=== PATIENT | male | born 1945 | race Two or more races ===

== ENCOUNTER 2019-12-13 17:22 | Inpatient (IN) | payer OTHER ==
[~2019-12-13] VITALS: Ht 175.3 cm; Wt 74.0 kg
[~2019-12-13 17:22] MED LIST: AMIO200T4 PO; ATOR20TA50 PO; CLOP75TA28 PO; DIGO0.1238 PO; DOX100T PO; LISI-646 PO; METO-6 PO; OXYB5TAB61 PO
[2019-12-13 18:26] LABS: Basophils # (auto) 0.1 uL; Eosinophils # (auto) 0.1 uL; Eosinophils % (auto) 1.4 % (0.0-7.0); Hematocrit 34.5 % (41.0-53.0); Hemoglobin 11.6 g/dL (13.5-17.5); Lymphocytes # (auto) 0.7 uL; Lymphocytes % (auto) 12.4 % (10.0-50.0); Mean Corpuscular Hemoglobin 31.1 pg (28.0-32.0); Mean Corpuscular Hgb Conc. 33.7 g/dL (32.0-36.0); Mean Corpuscular Volume 92.3 fL (80.0-100.0); Monocytes # (auto) 0.7 uL; Monocytes % (auto) 13.2 % (0.0-12.0); Neutrophils # (auto) 3.9 uL; Nucleated Red Blood Cells % 0.1 %; Platelet Count (auto) 284 10^3/uL (140-450); Red Blood Cells 3.74 10^6/uL (4.5-5.90); White Blood Cell 5.4 10^3/uL (4.4-10.8)
[2019-12-13 18:38] LABS: Albumin 3.2 g/dL (3.4-5.0); Calcium 8.5 mg/dL (8.5-10.1); Magnesium 2.5 mg/dL (1.6-2.6); Potassium 4.6 mmol/L (3.5-5.1)
[2019-12-13 18:44] LABS: BUN/Creatinine Ratio 10.7; Bilirubin, Total 0.4 mg/dL (0.2-1.0); Total Protein 7.9 g/dL (6.4-8.2)
[2019-12-13 18:45] LABS: INR 0.99 (0.9-1.15); Partial Thromboplastin Time 26.7 sec (23.64-32.05)
[2019-12-13] MEDS ORDERED: cloNIDine HCL 0.1 MG TAB PO ONE (20:15)
[2019-12-13] MEDS ORDERED: ASPirin 81 mg TAB PO ONE (20:15)
[2019-12-13] MEDS ORDERED: MORPHINE SULF INJ 2 MG/ML SYRINGE 1ML IV PRN (21:15)
[2019-12-13] MEDS ORDERED: NITROGLYCERIN 0.4 MG SL TAB SL PRN (21:15)
[2019-12-13] MEDS: AMIODARONE HCL 200 MG TAB PO SCH (22:12)
[2019-12-13] MEDS: DOXYCYCLINE 100 MG TAB/CAP PO SCH (22:13)
[2019-12-13] MEDS: ATORVASTATIN 20 MG TAB PO SCH (22:13)
[2019-12-13 22:43] VITALS: BP 147/99
[2019-12-14 05:03] VITALS: BP 143/69
[2019-12-14 09:00] VITALS: BP 128/76
[2019-12-14] MEDS: OXYBUTYNIN CHL 5 MG TAB PO SCH (09:23)
[2019-12-14] MEDS: CLOPIDOGREL BISULFATE 75 MG TAB PO SCH (09:23)
[2019-12-14] MEDS: LISINOPRIL 20 MG TAB PO SCH (09:23)
[2019-12-14] MEDS: AMIODARONE HCL 200 MG TAB PO SCH ×2 (09:24→22:16)
[2019-12-14] MEDS: DOXYCYCLINE 100 MG TAB/CAP PO SCH (09:24)
[2019-12-14] MEDS: DIGOXIN 0.125 MG TAB PO SCH (10:00)
[2019-12-14] MEDS: METOPROLOL SUCCINATE XL 50 MG TAB PO SCH (10:00)
[2019-12-14 11:18] LABS: Urine Bacteria NONE SEEN /hpf (None Seen); Urine Blood TRACE /uL (Negative); Urine WBC 1 /hpf (0 - 3)
[2019-12-14] MEDS: SOD CHL 0.45% 1,000 ML IV SCH ×2 (11:58→23:32)
[2019-12-14 12:54] VITALS: BP 148/82
[2019-12-14] MEDS: metroNIDAZOLE 500MG/100ML 100 ML IV SCH ×2 (13:35→22:17)
[2019-12-14 16:36] VITALS: BP 136/80
[2019-12-14 21:00] VITALS: BP 138/66
[2019-12-14] MEDS ORDERED: ACETAMINOPHEN 325 MG TAB PO PRN (21:15)
[2019-12-14] MEDS: ACETAMINOPHEN 325 MG TAB PO PRN (22:17)
[2019-12-14] MEDS: ATORVASTATIN 20 MG TAB PO SCH (22:17)
[2019-12-15] MEDS: ACETAMINOPHEN 325 MG TAB PO PRN ×3 (02:51→18:38)
[2019-12-15 04:47] VITALS: BP 127/81
[2019-12-15] MEDS: metroNIDAZOLE 500MG/100ML 100 ML IV SCH ×3 (05:56→22:00)
[2019-12-15 06:41] LABS: Basophils # (auto) 0 uL; Basophils % (auto) 0.2 % (0.0-2.0); Eosinophils # (auto) 0 uL; Hematocrit 35.5 % (41.0-53.0); Hemoglobin 12.1 g/dL (13.5-17.5); Lymphocytes # (auto) 0.9 uL; Lymphocytes % (auto) 8.1 % (10.0-50.0); Mean Corpuscular Hemoglobin 31.1 pg (28.0-32.0); Mean Corpuscular Volume 91.5 fL (80.0-100.0); Monocytes % (auto) 17.2 % (0.0-12.0); Neutrophils # (auto) 8.6 uL; Neutrophils % (auto) 74.5 % (37.0-80.0); Nucleated Red Blood Cells % 0.1 %; Platelet Count (auto) 228 10^3/uL (140-450); Red Blood Cells 3.88 10^6/uL (4.5-5.90); White Blood Cell 11.6 10^3/uL (4.4-10.8)
[2019-12-15 06:55] LABS: Albumin 2.7 g/dL (3.4-5.0); Potassium 5.4 mmol/L (3.5-5.1)
[2019-12-15 06:59] LABS: BUN/Creatinine Ratio 8.5; Bilirubin, Total 0.7 mg/dL (0.2-1.0); Total Protein 6.9 g/dL (6.4-8.2)
[2019-12-15 09:00] VITALS: BP 123/78
[2019-12-15] MEDS: DIGOXIN 0.125 MG TAB PO SCH (09:43)
[2019-12-15] MEDS: CLOPIDOGREL BISULFATE 75 MG TAB PO SCH (09:45)
[2019-12-15] MEDS: OXYBUTYNIN CHL 5 MG TAB PO SCH (09:46)
[2019-12-15] MEDS: AMIODARONE HCL 200 MG TAB PO SCH ×2 (09:46→22:00)
[2019-12-15] MEDS: LISINOPRIL 20 MG TAB PO SCH (09:47)
[2019-12-15] MEDS: METOPROLOL SUCCINATE XL 50 MG TAB PO SCH (09:47)
[2019-12-15] MEDS: SOD CHL 0.45% 1,000 ML IV SCH ×2 (09:48→17:24)
[2019-12-15] MEDS ORDERED: levoFLOXacin 250MG 50 ML IV SCH (10:00)
[2019-12-15] MEDS ORDERED: SODIUM ZIRCONIUM CYCL 10 GM PAK PO ONE ×2 (12:15→20:30)
[2019-12-15 13:00] VITALS: BP 144/72
[2019-12-15 17:02] VITALS: BP 125/67
[2019-12-15 17:46] LABS: BUN/Creatinine Ratio 8.7; Calcium 8.3 mg/dL (8.5-10.1); Potassium 5.2 mmol/L (3.5-5.1)
[2019-12-15] MEDS ORDERED: SODIUM BICARBONATE 8.4% INJ 50ML SYRINGE IV ONE (20:30)
[2019-12-15] MEDS ORDERED: DEXTROSE (50%) 50ML SYRG IV ONE (20:30)
[2019-12-15] MEDS ORDERED: InsuLIN REG 1unit/0.01ml Soln (100units/ml) IV ONE (20:30)
[2019-12-15] MEDS ORDERED: CALCIUM GLUC 4.65meq/50ml D5AE 50 ML IV ONE (20:30)
[2019-12-15 22:00] VITALS: BP 160/75
[2019-12-15] MEDS: ATORVASTATIN 20 MG TAB PO SCH (22:00)
[2019-12-16] MEDS: SOD CHL 0.45% 1,000 ML IV SCH ×2 (03:15→14:04)
[2019-12-16 05:00] VITALS: BP 155/90
[2019-12-16] MEDS: metroNIDAZOLE 500MG/100ML 100 ML IV SCH (06:06)
[2019-12-16 06:41] LABS: Basophils # (auto) 0 uL; Basophils % (auto) 0.1 % (0.0-2.0); Eosinophils # (auto) 0 uL; Hematocrit 33.1 % (41.0-53.0); Hemoglobin 11.3 g/dL (13.5-17.5); Lymphocytes # (auto) 0.9 uL; Lymphocytes % (auto) 6.4 % (10.0-50.0); Mean Corpuscular Hemoglobin 31.2 pg (28.0-32.0); Mean Corpuscular Hgb Conc. 34.2 g/dL (32.0-36.0); Mean Corpuscular Volume 91.1 fL (80.0-100.0); Monocytes # (auto) 1.5 uL; Monocytes % (auto) 11.1 % (0.0-12.0); Neutrophils # (auto) 11.5 uL; Neutrophils % (auto) 82.4 % (37.0-80.0); Platelet Count (auto) 187 10^3/uL (140-450); Red Blood Cells 3.64 10^6/uL (4.5-5.90); Red Cell Distribution Width 15.1 % (11.8-14.3); White Blood Cell 13.9 10^3/uL (4.4-10.8)
[2019-12-16 07:03] LABS: Albumin 2.4 g/dL (3.4-5.0); Calcium 7.9 mg/dL (8.5-10.1); Potassium 4.5 mmol/L (3.5-5.1)
[2019-12-16 07:08] LABS: BUN/Creatinine Ratio 8.7; Bilirubin, Total 0.6 mg/dL (0.2-1.0); Total Protein 6.3 g/dL (6.4-8.2)
[2019-12-16 08:45] VITALS: BP 139/78
[2019-12-16] MEDS: AMIODARONE HCL 200 MG TAB PO SCH ×2 (10:10→21:52)
[2019-12-16] MEDS: OXYBUTYNIN CHL 5 MG TAB PO SCH (10:10)
[2019-12-16] MEDS: CLOPIDOGREL BISULFATE 75 MG TAB PO SCH (10:13)
[2019-12-16] MEDS: METOPROLOL SUCCINATE XL 50 MG TAB PO SCH (10:13)
[2019-12-16] MEDS: DIGOXIN 0.125 MG TAB PO SCH (10:13)
[2019-12-16 12:48] LABS: Hepatitis A Ab IgM Negative; Hepatitis B Core IgM Negative; Hepatitis B Surface Antigen Negative (Negative)
[2019-12-16 12:49] LABS: Hepatitis C Antibody Positive (Negative)
[2019-12-16 13:00] VITALS: BP 155/86
[2019-12-16] MEDS: PIPERACILLIN-TAZOB 2.25GM 50 ML IV SCH ×2 (15:14→20:24)
[2019-12-16] MEDS ORDERED: BUMETANIDE 2.5mg/10ml (0.25 mg/ml) INJ IV ONE (16:00)
[2019-12-16] MEDS: SODIUM CHLORIDE 0.9% 1,000 ML IV SCH (16:20)
[2019-12-16 16:36] VITALS: BP 154/74
[2019-12-16 16:59] LABS: Protein, Urine 83.6 mg/dL (0.0-11.9)
[2019-12-16] MEDS: TAMSULOSIN HYDROCHLORIDE 0.4 MG CAP PO SCH (18:16)
[2019-12-16] MEDS: ACETAMINOPHEN 325 MG TAB PO PRN (18:45)
[2019-12-16] MEDS: ATORVASTATIN 20 MG TAB PO SCH (21:52)
[2019-12-16 22:00] VITALS: BP 118/74
[2019-12-17] MEDS: SODIUM CHLORIDE 0.9% 1,000 ML IV SCH ×2 (02:19→13:12)
[2019-12-17] MEDS: PIPERACILLIN-TAZOB 2.25GM 50 ML IV SCH ×4 (02:44→20:44)
[2019-12-17 05:00] VITALS: BP 143/75
[2019-12-17 06:17] LABS: Basophils # (auto) 0 uL; Basophils % (auto) 0.1 % (0.0-2.0); Eosinophils # (auto) 0 uL; Eosinophils % (auto) 0.1 % (0.0-7.0); Hematocrit 31.7 % (41.0-53.0); Lymphocytes # (auto) 0.7 uL; Lymphocytes % (auto) 6.8 % (10.0-50.0); Mean Corpuscular Hemoglobin 31.3 pg (28.0-32.0); Mean Corpuscular Hgb Conc. 34.6 g/dL (32.0-36.0); Mean Corpuscular Volume 90.4 fL (80.0-100.0); Monocytes # (auto) 0.9 uL; Monocytes % (auto) 8.5 % (0.0-12.0); Neutrophils # (auto) 9.3 uL; Neutrophils % (auto) 84.5 % (37.0-80.0); Platelet Count (auto) 186 10^3/uL (140-450); Red Blood Cells 3.51 10^6/uL (4.5-5.90); Red Cell Distribution Width 14.8 % (11.8-14.3)
[2019-12-17 06:32] LABS: Potassium 4.8 mmol/L (3.5-5.1)
[2019-12-17 06:43] LABS: Albumin 2.3 g/dL (3.4-5.0); BUN/Creatinine Ratio 10.1; Bilirubin, Total 0.6 mg/dL (0.2-1.0); Calcium 7.7 mg/dL (8.5-10.1); Total Protein 6.2 g/dL (6.4-8.2)
[2019-12-17 08:00] VITALS: BP 155/86
[2019-12-17 09:00] VITALS: BP 146/88
[2019-12-17] MEDS: AMIODARONE HCL 200 MG TAB PO SCH ×2 (09:24→22:02)
[2019-12-17] MEDS: OXYBUTYNIN CHL 5 MG TAB PO SCH (09:24)
[2019-12-17] MEDS: DIGOXIN 0.125 MG TAB PO SCH (09:24)
[2019-12-17] MEDS: METOPROLOL SUCCINATE XL 50 MG TAB PO SCH (09:25)
[2019-12-17] MEDS: CLOPIDOGREL BISULFATE 75 MG TAB PO SCH (09:25)
[2019-12-17] MEDS ORDERED: levoFLOXacin 250MG 50 ML IV SCH (10:00)
[2019-12-17 13:00] VITALS: BP 136/75
[2019-12-17] MEDS: FUROSEMIDE 40 MG/4 ML VIAL IV SCH (13:11)
[2019-12-17 17:17] VITALS: BP 153/82
[2019-12-17] MEDS: TAMSULOSIN HYDROCHLORIDE 0.4 MG CAP PO SCH (18:21)
[2019-12-17] MEDS: ACETAMINOPHEN 325 MG TAB PO PRN (20:07)
[2019-12-17 22:00] VITALS: BP 130/81
[2019-12-17] MEDS: ATORVASTATIN 20 MG TAB PO SCH (22:02)
[2019-12-18] MEDS ORDERED: PIPERACILLIN-TAZOB 2.25GM 50 ML IV ONE (01:53)
[2019-12-18] MEDS: PIPERACILLIN-TAZOB 2.25GM 50 ML IV SCH ×4 (03:03→23:46)
[2019-12-18 05:00] VITALS: BP 148/83
[2019-12-18 06:43] LABS: Basophils # (auto) 0 uL; Basophils % (auto) 0.1 % (0.0-2.0); Eosinophils # (auto) 0 uL; Eosinophils % (auto) 0.4 % (0.0-7.0); Hematocrit 31.5 % (41.0-53.0); Hemoglobin 10.9 g/dL (13.5-17.5); Lymphocytes # (auto) 0.8 uL; Lymphocytes % (auto) 8.9 % (10.0-50.0); Mean Corpuscular Hemoglobin 31.2 pg (28.0-32.0); Mean Corpuscular Hgb Conc. 34.5 g/dL (32.0-36.0); Mean Corpuscular Volume 90.4 fL (80.0-100.0); Monocytes # (auto) 0.9 uL; Monocytes % (auto) 10.7 % (0.0-12.0); Neutrophils # (auto) 6.8 uL; Neutrophils % (auto) 79.9 % (37.0-80.0); Platelet Count (auto) 200 10^3/uL (140-450); Red Blood Cells 3.48 10^6/uL (4.5-5.90); White Blood Cell 8.5 10^3/uL (4.4-10.8)
[2019-12-18 07:04] LABS: Albumin 2.2 g/dL (3.4-5.0); Calcium 7.4 mg/dL (8.5-10.1); Potassium 4.6 mmol/L (3.5-5.1)
[2019-12-18 07:07] LABS: BUN/Creatinine Ratio 9.8; Bilirubin, Total 0.6 mg/dL (0.2-1.0); Total Protein 6.2 g/dL (6.4-8.2)
[2019-12-18 08:00] VITALS: BP 150/81
[2019-12-18] MEDS: SODIUM CHLORIDE 0.9% 1,000 ML IV SCH ×3 (08:45→18:54)
[2019-12-18] MEDS ORDERED: FUROSEMIDE 40 MG/4 ML VIAL IV ONE (08:45)
[2019-12-18] MEDS: FUROSEMIDE 40 MG/4 ML VIAL IV SCH (09:15)
[2019-12-18 09:31] VITALS: BP 150/81
[2019-12-18] MEDS: CLOPIDOGREL BISULFATE 75 MG TAB PO SCH (11:13)
[2019-12-18] MEDS: AMIODARONE HCL 200 MG TAB PO SCH ×2 (11:14→22:15)
[2019-12-18] MEDS: DIGOXIN 0.125 MG TAB PO SCH (11:15)
[2019-12-18] MEDS: OXYBUTYNIN CHL 5 MG TAB PO SCH (11:16)
[2019-12-18] MEDS: METOPROLOL SUCCINATE XL 50 MG TAB PO SCH (11:16)
[2019-12-18 12:30] VITALS: BP 167/97
[2019-12-18 16:45] VITALS: BP 143/82
[2019-12-18] MEDS: TAMSULOSIN HYDROCHLORIDE 0.4 MG CAP PO SCH (18:53)
[2019-12-18 22:00] VITALS: BP 141/82
[2019-12-18] MEDS: ATORVASTATIN 20 MG TAB PO SCH (22:15)
[2019-12-18] MEDS: ACETAMINOPHEN 325 MG TAB PO PRN (22:19)
[2019-12-19 05:00] VITALS: BP 146/92
[2019-12-19 06:08] LABS: Basophils # (auto) 0 uL; Basophils % (auto) 0.3 % (0.0-2.0); Eosinophils # (auto) 0.1 uL; Eosinophils % (auto) 1.1 % (0.0-7.0); Hematocrit 32.9 % (41.0-53.0); Hemoglobin 11.2 g/dL (13.5-17.5); Lymphocytes # (auto) 0.8 uL; Lymphocytes % (auto) 12.2 % (10.0-50.0); Mean Corpuscular Hgb Conc. 34.2 g/dL (32.0-36.0); Mean Corpuscular Volume 90.4 fL (80.0-100.0); Monocytes # (auto) 0.9 uL; Monocytes % (auto) 13.1 % (0.0-12.0); Neutrophils # (auto) 4.8 uL; Neutrophils % (auto) 73.3 % (37.0-80.0); Platelet Count (auto) 215 10^3/uL (140-450); Red Blood Cells 3.63 10^6/uL (4.5-5.90); Red Cell Distribution Width 14.9 % (11.8-14.3); White Blood Cell 6.5 10^3/uL (4.4-10.8)
[2019-12-19] MEDS: cloNIDine HCL 0.1 MG TAB PO PRN (06:12)
[2019-12-19 06:58] LABS: BUN/Creatinine Ratio 9.9; Calcium 7.7 mg/dL (8.5-10.1)
[2019-12-19] MEDS: SODIUM CHLORIDE 0.9% 1,000 ML IV SCH ×3 (07:40→23:54)
[2019-12-19 08:00] VITALS: BP 91/68
[2019-12-19] MEDS: PIPERACILLIN-TAZOB 2.25GM 50 ML IV SCH ×3 (08:33→23:46)
[2019-12-19 09:10] VITALS: BP 91/68
[2019-12-19] MEDS: amLODIPine BESYLATE 5 MG TAB PO SCH (10:00)
[2019-12-19] MEDS: DIGOXIN 0.125 MG TAB PO SCH (10:00)
[2019-12-19] MEDS: FUROSEMIDE 40 MG/4 ML VIAL IV SCH (10:00)
[2019-12-19] MEDS: METOPROLOL SUCCINATE XL 50 MG TAB PO SCH (10:00)
[2019-12-19] MEDS: OXYBUTYNIN CHL 5 MG TAB PO SCH (10:21)
[2019-12-19] MEDS: CLOPIDOGREL BISULFATE 75 MG TAB PO SCH (10:22)
[2019-12-19] MEDS: AMIODARONE HCL 200 MG TAB PO SCH ×2 (10:22→21:45)
[2019-12-19 13:00] VITALS: BP 108/70
[2019-12-19 17:00] VITALS: BP 143/87
[2019-12-19] MEDS: TAMSULOSIN HYDROCHLORIDE 0.4 MG CAP PO SCH (18:02)
[2019-12-19] MEDS: ATORVASTATIN 20 MG TAB PO SCH (21:45)
[2019-12-19 22:00] VITALS: BP 144/90
[2019-12-20 05:13] VITALS: BP_SYST 103; BP_SYST 153; BP_DIAS 67; BP_DIAS 85
[2019-12-20 06:16] LABS: BUN/Creatinine Ratio 8.8; Calcium 7.5 mg/dL (8.5-10.1); Potassium 4.8 mmol/L (3.5-5.1)
[2019-12-20] MEDS: PIPERACILLIN-TAZOB 2.25GM 50 ML IV SCH ×3 (08:27→22:20)
[2019-12-20 09:00] VITALS: BP 144/77
[2019-12-20] MEDS: FUROSEMIDE 40 MG/4 ML VIAL IV SCH (09:56)
[2019-12-20] MEDS: AMIODARONE HCL 200 MG TAB PO SCH ×2 (09:56→22:19)
[2019-12-20] MEDS: CLOPIDOGREL BISULFATE 75 MG TAB PO SCH (09:57)
[2019-12-20] MEDS: OXYBUTYNIN CHL 5 MG TAB PO SCH (09:57)
[2019-12-20] MEDS: METOPROLOL SUCCINATE XL 50 MG TAB PO SCH (09:57)
[2019-12-20] MEDS: SODIUM BICARBONATE 50ML VIAL 50 ML in SOD CHL 0.45% 1,000 ML IV SCH ×2 (11:06→22:20)
[2019-12-20] MEDS: amLODIPine BESYLATE 5 MG TAB PO SCH (11:48)
[2019-12-20] MEDS: DIGOXIN 0.125 MG TAB PO SCH (11:48)
[2019-12-20 13:00] VITALS: BP 139/86
[2019-12-20 17:00] VITALS: BP 147/86
[2019-12-20] MEDS: TAMSULOSIN HYDROCHLORIDE 0.4 MG CAP PO SCH (17:34)
[2019-12-20 22:00] VITALS: BP 147/88
[2019-12-20] MEDS: ATORVASTATIN 20 MG TAB PO SCH (22:20)
[2019-12-21 05:00] VITALS: BP 159/97
[2019-12-21 06:17] LABS: Albumin 2.3 g/dL (3.4-5.0); Calcium 7.5 mg/dL (8.5-10.1); Potassium 5.1 mmol/L (3.5-5.1)
[2019-12-21 06:20] LABS: BUN/Creatinine Ratio 8.3; Bilirubin, Total 0.5 mg/dL (0.2-1.0); Total Protein 6.7 g/dL (6.4-8.2)
[2019-12-21] MEDS: SODIUM BICARBONATE 50ML VIAL 50 ML in SOD CHL 0.45% 1,000 ML IV SCH ×2 (07:30→18:59)
[2019-12-21 08:00] VITALS: BP 173/93
[2019-12-21] MEDS: PIPERACILLIN-TAZOB 2.25GM 50 ML IV SCH ×2 (08:29→15:27)
[2019-12-21] MEDS: cloNIDine HCL 0.1 MG TAB PO PRN (08:30)
[2019-12-21 09:04] VITALS: BP 173/93
[2019-12-21] MEDS: CLOPIDOGREL BISULFATE 75 MG TAB PO SCH (10:06)
[2019-12-21] MEDS: AMIODARONE HCL 200 MG TAB PO SCH ×2 (10:06→22:32)
[2019-12-21] MEDS: DIGOXIN 0.125 MG TAB PO SCH (10:06)
[2019-12-21] MEDS: OXYBUTYNIN CHL 5 MG TAB PO SCH (10:07)
[2019-12-21] MEDS: amLODIPine BESYLATE 5 MG TAB PO SCH (10:07)
[2019-12-21] MEDS: METOPROLOL SUCCINATE XL 50 MG TAB PO SCH (10:07)
[2019-12-21] MEDS: FUROSEMIDE 40 MG/4 ML VIAL IV SCH (10:08)
[2019-12-21 12:22] VITALS: BP 134/76
[2019-12-21] MEDS: Nepro With Carbsteady ButterPecan 8oz Carton PO SCH ×2 (14:11→18:00)
[2019-12-21 16:25] VITALS: BP 114/59
[2019-12-21] MEDS: TAMSULOSIN HYDROCHLORIDE 0.4 MG CAP PO SCH (17:57)
[2019-12-21 22:00] VITALS: BP 129/80
[2019-12-21] MEDS: ATORVASTATIN 20 MG TAB PO SCH (22:29)
[2019-12-22] MEDS: PIPERACILLIN-TAZOB 2.25GM 50 ML IV SCH ×3 (00:35→16:00)
[2019-12-22 05:00] VITALS: BP 154/83
[2019-12-22] MEDS: SODIUM BICARBONATE 50ML VIAL 50 ML in SOD CHL 0.45% 1,000 ML IV SCH ×3 (06:46→20:05)
[2019-12-22] MEDS: ACETAMINOPHEN 325 MG TAB PO PRN (06:47)
[2019-12-22 06:56] LABS: Potassium 4.9 mmol/L (3.5-5.1)
[2019-12-22 07:09] LABS: Albumin 2.3 g/dL (3.4-5.0); BUN/Creatinine Ratio 7.7; Bilirubin, Total 0.5 mg/dL (0.2-1.0); Calcium 7.6 mg/dL (8.5-10.1); Total Protein 6.8 g/dL (6.4-8.2)
[2019-12-22 08:00] VITALS: BP 126/77
[2019-12-22] MEDS: Nepro With Carbsteady ButterPecan 8oz Carton PO SCH ×2 (08:41→18:00)
[2019-12-22 08:47] VITALS: BP 126/77
[2019-12-22] MEDS: amLODIPine BESYLATE 5 MG TAB PO SCH ×2 (10:00→10:30)
[2019-12-22] MEDS: AMIODARONE HCL 200 MG TAB PO SCH ×2 (10:28→22:30)
[2019-12-22] MEDS: FUROSEMIDE 40 MG/4 ML VIAL IV SCH (10:28)
[2019-12-22] MEDS: DIGOXIN 0.125 MG TAB PO SCH (10:29)
[2019-12-22] MEDS: OXYBUTYNIN CHL 5 MG TAB PO SCH (10:29)
[2019-12-22] MEDS: CLOPIDOGREL BISULFATE 75 MG TAB PO SCH (10:39)
[2019-12-22] MEDS: METOPROLOL SUCCINATE XL 50 MG TAB PO SCH (10:40)
[2019-12-22 12:47] VITALS: BP 132/77
[2019-12-22 16:47] VITALS: BP 115/76
[2019-12-22] MEDS: TAMSULOSIN HYDROCHLORIDE 0.4 MG CAP PO SCH (17:28)
[2019-12-22 22:00] VITALS: BP 107/66
[2019-12-22] MEDS: ATORVASTATIN 20 MG TAB PO SCH (22:30)
[2019-12-23 05:00] VITALS: BP 109/68
[2019-12-23 06:05] LABS: Calcium 7.4 mg/dL (8.5-10.1); Potassium 4.4 mmol/L (3.5-5.1)
[2019-12-23 06:10] LABS: Albumin 2.2 g/dL (3.4-5.0); BUN/Creatinine Ratio 7.7; Bilirubin, Total 0.5 mg/dL (0.2-1.0); Total Protein 6.5 g/dL (6.4-8.2)
[2019-12-23] MEDS: Nepro With Carbsteady ButterPecan 8oz Carton PO SCH ×2 (08:00→18:39)
[2019-12-23 08:02] VITALS: BP 138/65
[2019-12-23 08:47] VITALS: BP 138/65
[2019-12-23] MEDS: PIPERACILLIN-TAZOB 2.25GM 50 ML IV SCH ×4 (09:48→23:33)
[2019-12-23] MEDS: amLODIPine BESYLATE 5 MG TAB PO SCH (10:00)
[2019-12-23] MEDS: FUROSEMIDE 40 MG/4 ML VIAL IV SCH (10:42)
[2019-12-23] MEDS: AMIODARONE HCL 200 MG TAB PO SCH ×2 (10:42→21:19)
[2019-12-23] MEDS: DIGOXIN 0.125 MG TAB PO SCH (10:43)
[2019-12-23] MEDS: METOPROLOL SUCCINATE XL 50 MG TAB PO SCH (10:43)
[2019-12-23] MEDS: CLOPIDOGREL BISULFATE 75 MG TAB PO SCH (11:04)
[2019-12-23] MEDS: OXYBUTYNIN CHL 5 MG TAB PO SCH (11:04)
[2019-12-23] MEDS: ERGOCALCIFEROL 50,000 UNIT(1.25MG) CAP PO SCH (11:05)
[2019-12-23] MEDS: SODIUM BICARBONATE 50ML VIAL 50 ML in SOD CHL 0.45% 1,000 ML IV SCH ×2 (12:32→22:54)
[2019-12-23] MEDS: SEVELAMER 800 MG TAB PO SCH ×2 (12:32→17:48)
[2019-12-23 13:00] VITALS: BP 147/69
[2019-12-23 16:58] VITALS: BP 125/68
[2019-12-23] MEDS: TAMSULOSIN HYDROCHLORIDE 0.4 MG CAP PO SCH (17:48)
[2019-12-23] MEDS: ATORVASTATIN 20 MG TAB PO SCH (21:19)
[2019-12-23 22:00] VITALS: BP 146/75
[2019-12-24 05:00] VITALS: BP 146/77
[2019-12-24 07:11] LABS: Calcium 7.5 mg/dL (8.5-10.1); Potassium 4.2 mmol/L (3.5-5.1)
[2019-12-24 07:15] LABS: BUN/Creatinine Ratio 7.9
[2019-12-24 07:17] LABS: Bilirubin, Total 0.6 mg/dL (0.2-1.0); Total Protein 6.6 g/dL (6.4-8.2)
[2019-12-24] MEDS: SEVELAMER 800 MG TAB PO SCH ×3 (08:23→17:36)
[2019-12-24] MEDS: Nepro With Carbsteady ButterPecan 8oz Carton PO SCH ×2 (08:25→18:28)
[2019-12-24 09:00] VITALS: BP 131/79
[2019-12-24] MEDS: PIPERACILLIN-TAZOB 2.25GM 50 ML IV SCH ×2 (09:03→15:48)
[2019-12-24] MEDS: CLOPIDOGREL BISULFATE 75 MG TAB PO SCH (09:53)
[2019-12-24] MEDS: AMIODARONE HCL 200 MG TAB PO SCH ×2 (09:53→22:18)
[2019-12-24] MEDS: OXYBUTYNIN CHL 5 MG TAB PO SCH (09:53)
[2019-12-24] MEDS: FUROSEMIDE 40 MG/4 ML VIAL IV SCH (09:53)
[2019-12-24] MEDS: DIGOXIN 0.125 MG TAB PO SCH (09:54)
[2019-12-24] MEDS: METOPROLOL SUCCINATE XL 50 MG TAB PO SCH (09:54)
[2019-12-24] MEDS: dilTIAZem 120MG ER CAP PO SCH (09:55)
[2019-12-24] MEDS: SODIUM BICARBONATE 50ML VIAL 50 ML in SOD CHL 0.45% 1,000 ML IV SCH ×2 (11:30→22:30)
[2019-12-24 12:40] VITALS: BP 134/73
[2019-12-24 17:00] VITALS: BP 129/75
[2019-12-24] MEDS: TAMSULOSIN HYDROCHLORIDE 0.4 MG CAP PO SCH (17:36)
[2019-12-24 22:18] VITALS: BP 133/69
[2019-12-24] MEDS: ATORVASTATIN 20 MG TAB PO SCH (22:18)
[2019-12-25] MEDS ORDERED: PIPERACILLIN-TAZOB 2.25GM 50 ML IV ONE (00:21)
[2019-12-25] MEDS: PIPERACILLIN-TAZOB 2.25GM 50 ML IV SCH ×2 (00:25→08:21)
[2019-12-25 05:00] VITALS: BP 141/75
[2019-12-25] MEDS: ACETAMINOPHEN 325 MG TAB PO PRN ×3 (05:43→15:45)
[2019-12-25] MEDS: SODIUM BICARBONATE 50ML VIAL 50 ML in SOD CHL 0.45% 1,000 ML IV SCH ×2 (06:00→12:38)
[2019-12-25 06:50] LABS: Potassium 3.7 mmol/L (3.5-5.1)
[2019-12-25 06:59] LABS: BUN/Creatinine Ratio 7.7; Bilirubin, Total 0.6 mg/dL (0.2-1.0); Calcium 7.7 mg/dL (8.5-10.1); Total Protein 6.8 g/dL (6.4-8.2)
[2019-12-25] MEDS: SEVELAMER 800 MG TAB PO SCH ×3 (08:21→17:50)
[2019-12-25] MEDS: Nepro With Carbsteady ButterPecan 8oz Carton PO SCH (08:22)
[2019-12-25 09:00] VITALS: BP 148/87
[2019-12-25] MEDS ORDERED: POTASSIUM EFFERVESENT TAB 25 MEQ PO ONE (10:45)
[2019-12-25] MEDS: AMIODARONE HCL 200 MG TAB PO SCH ×2 (10:56→22:08)
[2019-12-25] MEDS: CLOPIDOGREL BISULFATE 75 MG TAB PO SCH (10:58)
[2019-12-25] MEDS: OXYBUTYNIN CHL 5 MG TAB PO SCH (10:58)
[2019-12-25] MEDS: METOPROLOL SUCCINATE XL 50 MG TAB PO SCH (10:58)
[2019-12-25] MEDS: DIGOXIN 0.125 MG TAB PO SCH (10:59)
[2019-12-25] MEDS: FUROSEMIDE 40 MG/4 ML VIAL IV SCH (10:59)
[2019-12-25] MEDS: dilTIAZem 120MG ER CAP PO SCH (11:00)
[2019-12-25 13:00] VITALS: BP 152/88
[2019-12-25 17:00] VITALS: BP 118/72
[2019-12-25] MEDS: TAMSULOSIN HYDROCHLORIDE 0.4 MG CAP PO SCH (17:50)
[2019-12-25 22:00] VITALS: BP 129/76
[2019-12-25] MEDS: LINEZOLID 600MG/300ML 300 ML IV SCH (22:07)
[2019-12-25] MEDS: ATORVASTATIN 20 MG TAB PO SCH (22:08)
[2019-12-26] VITALS (7 sets, daily range): BP systolic 116–172; BP diastolic 75–86
[2019-12-26] MEDS: SODIUM BICARBONATE 50ML VIAL 50 ML in SOD CHL 0.45% 1,000 ML IV SCH ×2 (03:25→13:30)
[2019-12-26] MEDS: cloNIDine HCL 0.1 MG TAB PO PRN (05:28)
[2019-12-26 07:39] LABS: Albumin 2.3 g/dL (3.4-5.0); BUN/Creatinine Ratio 7.5; Bilirubin, Total 0.6 mg/dL (0.2-1.0); Calcium 8.2 mg/dL (8.5-10.1); Potassium 4.4 mmol/L (3.5-5.1); Total Protein 7.5 g/dL (6.4-8.2)
[2019-12-26] MEDS: SEVELAMER 800 MG TAB PO SCH ×4 (08:00→18:04)
[2019-12-26] MEDS: ONDANSETRON HCL 4 MG/2 ML VIAL IV PRN ×2 (10:00→14:34)
[2019-12-26] MEDS: LINEZOLID 600MG/300ML 300 ML IV SCH ×2 (10:00→22:19)
[2019-12-26] MEDS: FUROSEMIDE 40 MG/4 ML VIAL IV SCH (10:00)
[2019-12-26] MEDS: dilTIAZem 120MG ER CAP PO SCH (13:00)
[2019-12-26] MEDS: METOPROLOL SUCCINATE XL 50 MG TAB PO SCH (13:01)
[2019-12-26] MEDS: CLOPIDOGREL BISULFATE 75 MG TAB PO SCH (13:01)
[2019-12-26] MEDS: OXYBUTYNIN CHL 5 MG TAB PO SCH (13:01)
[2019-12-26] MEDS: AMIODARONE HCL 200 MG TAB PO SCH ×2 (13:01→22:19)
[2019-12-26] MEDS: DIGOXIN 0.125 MG TAB PO SCH (13:03)
[2019-12-26] MEDS: TAMSULOSIN HYDROCHLORIDE 0.4 MG CAP PO SCH (18:03)
[2019-12-26] MEDS: ATORVASTATIN 20 MG TAB PO SCH (22:19)
[2019-12-26] MEDS: ACETAMINOPHEN 325 MG TAB PO PRN (22:20)
[2019-12-27] MEDS: SODIUM BICARBONATE 50ML VIAL 50 ML in SOD CHL 0.45% 1,000 ML IV SCH ×3 (04:19→22:01)
[2019-12-27 05:22] VITALS: BP 122/70
[2019-12-27 06:01] LABS: Basophils # (auto) 0 uL; Basophils % (auto) 0.3 % (0.0-2.0); Eosinophils # (auto) 0.1 uL; Eosinophils % (auto) 1.2 % (0.0-7.0); Hematocrit 27.4 % (41.0-53.0); Hemoglobin 9.4 g/dL (13.5-17.5); Lymphocytes # (auto) 0.8 uL; Lymphocytes % (auto) 11.1 % (10.0-50.0); Mean Corpuscular Hemoglobin 30.2 pg (28.0-32.0); Mean Corpuscular Hgb Conc. 34.3 g/dL (32.0-36.0); Mean Corpuscular Volume 88.1 fL (80.0-100.0); Monocytes # (auto) 0.8 uL; Monocytes % (auto) 10.1 % (0.0-12.0); Neutrophils # (auto) 5.8 uL; Neutrophils % (auto) 77.3 % (37.0-80.0); Platelet Count (auto) 361 10^3/uL (140-450); Red Blood Cells 3.12 10^6/uL (4.5-5.90); Red Cell Distribution Width 14.4 % (11.8-14.3); White Blood Cell 7.5 10^3/uL (4.4-10.8)
[2019-12-27 06:23] LABS: BUN/Creatinine Ratio 7.1; Potassium 3.7 mmol/L (3.5-5.1)
[2019-12-27] MEDS: SEVELAMER 800 MG TAB PO SCH ×3 (07:54→17:44)
[2019-12-27 08:00] VITALS: BP 133/78
[2019-12-27 09:00] VITALS: BP 133/78
[2019-12-27] MEDS: FUROSEMIDE 40 MG/4 ML VIAL IV SCH (10:13)
[2019-12-27] MEDS: LINEZOLID 600MG/300ML 300 ML IV SCH ×2 (10:13→22:02)
[2019-12-27] MEDS: dilTIAZem 120MG ER CAP PO SCH (10:14)
[2019-12-27] MEDS: AMIODARONE HCL 200 MG TAB PO SCH ×2 (10:14→22:02)
[2019-12-27] MEDS: DIGOXIN 0.125 MG TAB PO SCH (10:15)
[2019-12-27] MEDS: CLOPIDOGREL BISULFATE 75 MG TAB PO SCH (10:15)
[2019-12-27] MEDS: OXYBUTYNIN CHL 5 MG TAB PO SCH (10:15)
[2019-12-27] MEDS: METOPROLOL SUCCINATE XL 50 MG TAB PO SCH (10:16)
[2019-12-27 13:00] VITALS: BP 118/71
[2019-12-27 17:00] VITALS: BP 132/76
[2019-12-27] MEDS: TAMSULOSIN HYDROCHLORIDE 0.4 MG CAP PO SCH (17:44)
[2019-12-27 22:00] VITALS: BP 110/72
[2019-12-27] MEDS: ATORVASTATIN 20 MG TAB PO SCH (22:02)
[2019-12-28 05:00] VITALS: BP 135/86
[2019-12-28] MEDS: SODIUM BICARBONATE 50ML VIAL 50 ML in SOD CHL 0.45% 1,000 ML IV SCH ×2 (07:30→18:00)
[2019-12-28] MEDS: Nepro With Carbsteady ButterPecan 8oz Carton PO SCH ×2 (08:25→18:00)
[2019-12-28] MEDS: SEVELAMER 800 MG TAB PO SCH ×3 (08:30→18:00)
[2019-12-28 09:38] VITALS: BP 137/72
[2019-12-28] MEDS: dilTIAZem 120MG ER CAP PO SCH (10:00)
[2019-12-28] MEDS: AMIODARONE HCL 200 MG TAB PO SCH ×2 (10:00→23:12)
[2019-12-28] MEDS: LINEZOLID 600MG/300ML 300 ML IV SCH ×2 (10:51→23:11)
[2019-12-28] MEDS: FUROSEMIDE 40 MG/4 ML VIAL IV SCH (10:52)
[2019-12-28] MEDS: OXYBUTYNIN CHL 5 MG TAB PO SCH (10:53)
[2019-12-28] MEDS: DIGOXIN 0.125 MG TAB PO SCH (10:53)
[2019-12-28] MEDS: CLOPIDOGREL BISULFATE 75 MG TAB PO SCH (10:54)
[2019-12-28] MEDS: METOPROLOL SUCCINATE XL 50 MG TAB PO SCH (10:54)
[2019-12-28 13:00] VITALS: BP 146/78
[2019-12-28 17:00] VITALS: BP 140/75
[2019-12-28] MEDS: TAMSULOSIN HYDROCHLORIDE 0.4 MG CAP PO SCH (18:27)
[2019-12-28 21:00] VITALS: BP 154/84
[2019-12-28] MEDS ORDERED: CALCIUM CARB 500 MG CHEW TAB PO PRN (21:00)
[2019-12-28] MEDS: ATORVASTATIN 20 MG TAB PO SCH (23:11)
[2019-12-28] MEDS: ONDANSETRON HCL 4 MG/2 ML VIAL IV PRN (23:20)
[2019-12-29] MEDS: SODIUM BICARBONATE 50ML VIAL 50 ML in SOD CHL 0.45% 1,000 ML IV SCH ×2 (04:21→18:47)
[2019-12-29 04:30] VITALS: BP 117/80
[2019-12-29] MEDS: CALCIUM CARB 500 MG CHEW TAB PO SCH ×4 (06:31→22:16)
[2019-12-29 06:54] LABS: Potassium 4.2 mmol/L (3.5-5.1)
[2019-12-29 07:01] LABS: BUN/Creatinine Ratio 7.4; Calcium 8.2 mg/dL (8.5-10.1)
[2019-12-29 08:27] VITALS: BP 135/79
[2019-12-29] MEDS: Nepro With Carbsteady ButterPecan 8oz Carton PO SCH ×2 (08:30→18:00)
[2019-12-29] MEDS: SEVELAMER 800 MG TAB PO SCH ×3 (08:30→18:00)
[2019-12-29] MEDS: OXYBUTYNIN CHL 5 MG TAB PO SCH (10:01)
[2019-12-29] MEDS: FUROSEMIDE 40 MG/4 ML VIAL IV SCH (10:01)
[2019-12-29] MEDS: CLOPIDOGREL BISULFATE 75 MG TAB PO SCH (10:01)
[2019-12-29] MEDS: AMIODARONE HCL 200 MG TAB PO SCH ×2 (10:01→22:15)
[2019-12-29] MEDS: LINEZOLID 600MG/300ML 300 ML IV SCH ×2 (10:01→22:15)
[2019-12-29] MEDS: DIGOXIN 0.125 MG TAB PO SCH (10:02)
[2019-12-29] MEDS: dilTIAZem 120MG ER CAP PO SCH (10:03)
[2019-12-29] MEDS: METOPROLOL SUCCINATE XL 50 MG TAB PO SCH (10:03)
[2019-12-29 13:33] VITALS: BP 134/78
[2019-12-29] MEDS: TAMSULOSIN HYDROCHLORIDE 0.4 MG CAP PO SCH (18:00)
[2019-12-29] MEDS: ACETAMINOPHEN 325 MG TAB PO PRN (18:41)
[2019-12-29 21:00] VITALS: BP 142/80
[2019-12-29] MEDS: ATORVASTATIN 20 MG TAB PO SCH (22:15)
[2019-12-29] MEDS: PANTOPRAZOLE 40 MG TAB PO SCH (22:16)
[2019-12-30] MEDS: SODIUM BICARBONATE 50ML VIAL 50 ML in SOD CHL 0.45% 1,000 ML IV SCH ×3 (01:59→22:20)
[2019-12-30 05:00] VITALS: BP 148/74
[2019-12-30] MEDS: CALCIUM CARB 500 MG CHEW TAB PO SCH ×5 (06:12→22:19)
[2019-12-30] MEDS: SUCRALFATE 1 GM/10 ML ORAL SUSP PO SCH ×3 (06:12→16:51)
[2019-12-30 07:36] LABS: BUN/Creatinine Ratio 7.9; Calcium 8.3 mg/dL (8.5-10.1); Potassium 3.3 mmol/L (3.5-5.1)
[2019-12-30] MEDS: Nepro With Carbsteady ButterPecan 8oz Carton PO SCH ×2 (08:27→16:51)
[2019-12-30] MEDS: SEVELAMER 800 MG TAB PO SCH ×3 (08:28→16:51)
[2019-12-30 09:00] VITALS: BP 136/83
[2019-12-30] MEDS: AMIODARONE HCL 200 MG TAB PO SCH ×2 (10:42→22:20)
[2019-12-30] MEDS: OXYBUTYNIN CHL 5 MG TAB PO SCH (10:43)
[2019-12-30] MEDS: dilTIAZem 120MG ER CAP PO SCH (10:43)
[2019-12-30] MEDS: DIGOXIN 0.125 MG TAB PO SCH (10:44)
[2019-12-30] MEDS: PANTOPRAZOLE 40 MG TAB PO SCH ×2 (10:44→22:18)
[2019-12-30] MEDS: CLOPIDOGREL BISULFATE 75 MG TAB PO SCH (10:44)
[2019-12-30] MEDS: METOPROLOL SUCCINATE XL 50 MG TAB PO SCH (10:45)
[2019-12-30] MEDS: ERGOCALCIFEROL 50,000 UNIT(1.25MG) CAP PO SCH (10:45)
[2019-12-30] MEDS: LINEZOLID 600MG/300ML 300 ML IV SCH ×2 (10:52→22:18)
[2019-12-30 13:00] VITALS: BP 144/73
[2019-12-30 16:51] VITALS: BP 138/80
[2019-12-30] MEDS: TAMSULOSIN HYDROCHLORIDE 0.4 MG CAP PO SCH (16:51)
[2019-12-30 22:00] VITALS: BP 135/81
[2019-12-30] MEDS: ATORVASTATIN 20 MG TAB PO SCH (22:18)
[2019-12-31 05:00] VITALS: BP 146/83
[2019-12-31] MEDS: SUCRALFATE 1 GM/10 ML ORAL SUSP PO SCH ×3 (06:26→17:47)
[2019-12-31] MEDS: CALCIUM CARB 500 MG CHEW TAB PO SCH ×5 (06:26→21:40)
[2019-12-31 06:58] LABS: BUN/Creatinine Ratio 8.2; Calcium 8.1 mg/dL (8.5-10.1); Potassium 3.5 mmol/L (3.5-5.1)
[2019-12-31] MEDS: Nepro With Carbsteady ButterPecan 8oz Carton PO SCH ×2 (08:00→17:47)
[2019-12-31] MEDS: SEVELAMER 800 MG TAB PO SCH ×3 (08:00→17:47)
[2019-12-31] MEDS: ONDANSETRON HCL 4 MG/2 ML VIAL IV PRN (08:47)
[2019-12-31 09:00] VITALS: BP 145/83
[2019-12-31] MEDS: SODIUM BICARBONATE 50ML VIAL 50 ML in SOD CHL 0.45% 1,000 ML IV SCH ×2 (09:00→15:45)
[2019-12-31] MEDS: CLOPIDOGREL BISULFATE 75 MG TAB PO SCH (09:38)
[2019-12-31] MEDS: LINEZOLID 600MG/300ML 300 ML IV SCH ×2 (09:40→21:35)
[2019-12-31] MEDS: AMIODARONE HCL 200 MG TAB PO SCH ×2 (09:41→21:36)
[2019-12-31] MEDS: dilTIAZem 120MG ER CAP PO SCH (09:41)
[2019-12-31] MEDS: DIGOXIN 0.125 MG TAB PO SCH (09:42)
[2019-12-31] MEDS: OXYBUTYNIN CHL 5 MG TAB PO SCH (09:52)
[2019-12-31] MEDS: PANTOPRAZOLE 40 MG TAB PO SCH ×2 (09:52→21:38)
[2019-12-31] MEDS: METOPROLOL SUCCINATE XL 50 MG TAB PO SCH (09:52)
[2019-12-31 13:00] VITALS: BP 137/77
[2019-12-31 17:00] VITALS: BP 127/75
[2019-12-31] MEDS: TAMSULOSIN HYDROCHLORIDE 0.4 MG CAP PO SCH (17:47)
[2019-12-31] MEDS: ACETAMINOPHEN 325 MG TAB PO PRN (17:52)
[2019-12-31] MEDS: ATORVASTATIN 20 MG TAB PO SCH (21:38)
[2019-12-31 22:00] VITALS: BP 141/80
[2020-01-01 05:00] VITALS: BP 147/81
[2020-01-01] MEDS: CALCIUM CARB 500 MG CHEW TAB PO SCH ×4 (05:07→22:00)
[2020-01-01] MEDS: SODIUM BICARBONATE 50ML VIAL 50 ML in SOD CHL 0.45% 1,000 ML IV SCH ×2 (05:45→14:37)
[2020-01-01] MEDS: SUCRALFATE 1 GM/10 ML ORAL SUSP PO SCH ×3 (05:45→17:00)
[2020-01-01 05:50] LABS: Basophils # (auto) 0 uL; Basophils % (auto) 0.5 % (0.0-2.0); Eosinophils # (auto) 0.1 uL; Hematocrit 27.5 % (41.0-53.0); Hemoglobin 9.6 g/dL (13.5-17.5); Lymphocytes # (auto) 0.9 uL; Lymphocytes % (auto) 12.1 % (10.0-50.0); Mean Corpuscular Hemoglobin 30.7 pg (28.0-32.0); Mean Corpuscular Hgb Conc. 34.9 g/dL (32.0-36.0); Mean Corpuscular Volume 87.9 fL (80.0-100.0); Monocytes # (auto) 0.9 uL; Monocytes % (auto) 12.7 % (0.0-12.0); Neutrophils # (auto) 5.3 uL; Neutrophils % (auto) 73.7 % (37.0-80.0); Platelet Count (auto) 326 10^3/uL (140-450); Red Blood Cells 3.13 10^6/uL (4.5-5.90); Red Cell Distribution Width 14.8 % (11.8-14.3); White Blood Cell 7.2 10^3/uL (4.4-10.8)
[2020-01-01 06:06] LABS: BUN/Creatinine Ratio 8.6; Calcium 8.1 mg/dL (8.5-10.1); Potassium 3.4 mmol/L (3.5-5.1)
[2020-01-01] MEDS: Nepro With Carbsteady ButterPecan 8oz Carton PO SCH ×2 (08:00→17:34)
[2020-01-01] MEDS: SEVELAMER 800 MG TAB PO SCH ×3 (08:00→17:58)
[2020-01-01 09:00] VITALS: BP 145/85
[2020-01-01] MEDS: ONDANSETRON HCL 4 MG/2 ML VIAL IV PRN (09:56)
[2020-01-01] MEDS: LINEZOLID 600MG/300ML 300 ML IV SCH (09:56)
[2020-01-01] MEDS: PANTOPRAZOLE 40 MG TAB PO SCH ×2 (10:00→22:27)
[2020-01-01] MEDS: dilTIAZem 120MG ER CAP PO SCH (10:00)
[2020-01-01] MEDS: METOPROLOL SUCCINATE XL 50 MG TAB PO SCH (10:00)
[2020-01-01] MEDS: DIGOXIN 0.125 MG TAB PO SCH (10:00)
[2020-01-01] MEDS: CLOPIDOGREL BISULFATE 75 MG TAB PO SCH (10:00)
[2020-01-01] MEDS: OXYBUTYNIN CHL 5 MG TAB PO SCH (10:00)
[2020-01-01] MEDS: AMIODARONE HCL 200 MG TAB PO SCH ×2 (10:00→22:26)
[2020-01-01] MEDS ORDERED: GASTROGRAFIN 120 ML SOL ONE ×2 (12:14→12:49)
[2020-01-01] MEDS ORDERED: EZ-GAS II GRANULES (RADIOLOGY USE) PO ONE (12:14)
[2020-01-01 13:00] VITALS: BP 157/84
[2020-01-01 14:05] VITALS: BP 157/84
[2020-01-01 17:00] VITALS: BP 153/79
[2020-01-01] MEDS: ACETAMINOPHEN 325 MG TAB PO PRN (17:58)
[2020-01-01] MEDS: TAMSULOSIN HYDROCHLORIDE 0.4 MG CAP PO SCH (17:58)
[2020-01-01 22:00] VITALS: BP 141/83
[2020-01-01] MEDS: ATORVASTATIN 20 MG TAB PO SCH (22:26)
[2020-01-01] MEDS: LINEZOLID 600MG TABLET PO SCH (22:27)
[2020-01-02 05:00] VITALS: BP 152/92
[2020-01-02] MEDS: SODIUM BICARBONATE 50ML VIAL 50 ML in SOD CHL 0.45% 1,000 ML IV SCH ×2 (05:27→18:53)
[2020-01-02] MEDS: CALCIUM CARB 500 MG CHEW TAB PO SCH ×4 (06:00→22:24)
[2020-01-02] MEDS: SUCRALFATE 1 GM/10 ML ORAL SUSP PO SCH ×3 (06:34→18:53)
[2020-01-02 09:00] VITALS: BP 144/90
[2020-01-02] MEDS: AMIODARONE HCL 200 MG TAB PO SCH ×2 (09:44→22:23)
[2020-01-02] MEDS: OXYBUTYNIN CHL 5 MG TAB PO SCH (09:44)
[2020-01-02] MEDS: CLOPIDOGREL BISULFATE 75 MG TAB PO SCH (09:44)
[2020-01-02] MEDS: dilTIAZem 120MG ER CAP PO SCH (09:44)
[2020-01-02] MEDS: DIGOXIN 0.125 MG TAB PO SCH (09:45)
[2020-01-02] MEDS: LINEZOLID 600MG TABLET PO SCH ×2 (09:45→22:24)
[2020-01-02] MEDS: METOPROLOL SUCCINATE XL 50 MG TAB PO SCH (09:45)
[2020-01-02] MEDS: PANTOPRAZOLE 40 MG TAB PO SCH ×2 (09:45→22:23)
[2020-01-02] MEDS: SEVELAMER 800 MG TAB PO SCH ×3 (09:46→18:54)
[2020-01-02] MEDS: Nepro With Carbsteady ButterPecan 8oz Carton PO SCH ×2 (09:46→18:54)
[2020-01-02 13:00] VITALS: BP 144/83
[2020-01-02 17:00] VITALS: BP 142/78
[2020-01-02 17:07] LABS: BUN/Creatinine Ratio 8.9; Calcium 7.8 mg/dL (8.5-10.1); Potassium 3.4 mmol/L (3.5-5.1)
[2020-01-02] MEDS: TAMSULOSIN HYDROCHLORIDE 0.4 MG CAP PO SCH (18:53)
[2020-01-02 21:57] VITALS: BP 130/91
[2020-01-02] MEDS: ATORVASTATIN 20 MG TAB PO SCH (22:23)
[2020-01-02] MEDS: ACETAMINOPHEN 325 MG TAB PO PRN (22:26)
[2020-01-03] MEDS: SODIUM BICARBONATE 50ML VIAL 50 ML in SOD CHL 0.45% 1,000 ML IV SCH ×2 (03:54→09:47)
[2020-01-03] MEDS: CALCIUM CARB 500 MG CHEW TAB PO SCH ×4 (06:11→22:47)
[2020-01-03] MEDS: SUCRALFATE 1 GM/10 ML ORAL SUSP PO SCH ×3 (06:11→18:25)
[2020-01-03 06:12] VITALS: BP 127/70
[2020-01-03 07:05] LABS: BUN/Creatinine Ratio 8.1; Calcium 8.2 mg/dL (8.5-10.1); Potassium 3.1 mmol/L (3.5-5.1)
[2020-01-03 07:41] VITALS: BP 152/82
[2020-01-03] MEDS: dilTIAZem 120MG ER CAP PO SCH (09:31)
[2020-01-03] MEDS: OXYBUTYNIN CHL 5 MG TAB PO SCH (09:31)
[2020-01-03] MEDS: AMIODARONE HCL 200 MG TAB PO SCH ×2 (09:31→22:46)
[2020-01-03] MEDS: CLOPIDOGREL BISULFATE 75 MG TAB PO SCH (09:32)
[2020-01-03] MEDS: PANTOPRAZOLE 40 MG TAB PO SCH ×2 (09:32→22:47)
[2020-01-03] MEDS: METOPROLOL SUCCINATE XL 50 MG TAB PO SCH (09:32)
[2020-01-03] MEDS: DIGOXIN 0.125 MG TAB PO SCH (09:32)
[2020-01-03] MEDS: SEVELAMER 800 MG TAB PO SCH ×3 (09:46→18:26)
[2020-01-03] MEDS: Nepro With Carbsteady ButterPecan 8oz Carton PO SCH ×2 (09:46→18:26)
[2020-01-03] MEDS: LINEZOLID 600MG TABLET PO SCH ×2 (09:46→22:50)
[2020-01-03] MEDS ORDERED: POTASSIUM CHL 20 Meq TABLET PO ONE (11:30)
[2020-01-03 11:48] VITALS: BP 129/76
[2020-01-03 16:34] VITALS: BP 133/81
[2020-01-03] MEDS: TAMSULOSIN HYDROCHLORIDE 0.4 MG CAP PO SCH (18:25)
[2020-01-03 21:51] VITALS: BP 132/78
[2020-01-03] MEDS: ATORVASTATIN 20 MG TAB PO SCH (22:47)
[2020-01-04 05:51] VITALS: BP 135/82
[2020-01-04] MEDS: CALCIUM CARB 500 MG CHEW TAB PO SCH ×4 (06:20→20:52)
[2020-01-04] MEDS: SUCRALFATE 1 GM/10 ML ORAL SUSP PO SCH ×3 (06:21→17:50)
[2020-01-04 06:39] LABS: Basophils # (auto) 0 uL; Basophils % (auto) 0.8 % (0.0-2.0); Eosinophils # (auto) 0.1 uL; Eosinophils % (auto) 1.9 % (0.0-7.0); Hematocrit 27.1 % (41.0-53.0); Hemoglobin 9.3 g/dL (13.5-17.5); Lymphocytes # (auto) 0.8 uL; Lymphocytes % (auto) 13.3 % (10.0-50.0); Mean Corpuscular Hemoglobin 30.7 pg (28.0-32.0); Mean Corpuscular Hgb Conc. 34.4 g/dL (32.0-36.0); Mean Corpuscular Volume 89.3 fL (80.0-100.0); Monocytes # (auto) 0.8 uL; Monocytes % (auto) 14.2 % (0.0-12.0); Neutrophils % (auto) 69.8 % (37.0-80.0); Platelet Count (auto) 243 10^3/uL (140-450); Red Blood Cells 3.03 10^6/uL (4.5-5.90); Red Cell Distribution Width 15.2 % (11.8-14.3); White Blood Cell 5.8 10^3/uL (4.4-10.8)
[2020-01-04 06:59] LABS: BUN/Creatinine Ratio 9.9; Calcium 8.5 mg/dL (8.5-10.1); Potassium 3.9 mmol/L (3.5-5.1)
[2020-01-04] MEDS: Nepro With Carbsteady ButterPecan 8oz Carton PO SCH ×2 (08:00→17:51)
[2020-01-04] MEDS: SEVELAMER 800 MG TAB PO SCH ×3 (08:13→17:50)
[2020-01-04 08:41] VITALS: BP 145/85
[2020-01-04] MEDS: dilTIAZem 120MG ER CAP PO SCH (10:47)
[2020-01-04] MEDS: OXYBUTYNIN CHL 5 MG TAB PO SCH (10:48)
[2020-01-04] MEDS: LINEZOLID 600MG TABLET PO SCH ×2 (10:48→20:57)
[2020-01-04] MEDS: CLOPIDOGREL BISULFATE 75 MG TAB PO SCH (10:48)
[2020-01-04] MEDS: PANTOPRAZOLE 40 MG TAB PO SCH ×2 (10:48→20:56)
[2020-01-04] MEDS: METOPROLOL SUCCINATE XL 50 MG TAB PO SCH (10:51)
[2020-01-04] MEDS: DIGOXIN 0.125 MG TAB PO SCH (10:51)
[2020-01-04] MEDS: AMIODARONE HCL 200 MG TAB PO SCH ×2 (10:51→20:51)
[2020-01-04 12:57] VITALS: BP 136/84
[2020-01-04 17:07] VITALS: BP 136/79
[2020-01-04] MEDS: TAMSULOSIN HYDROCHLORIDE 0.4 MG CAP PO SCH (17:50)
[2020-01-04 20:00] VITALS: BP 145/85
[2020-01-04] MEDS: ACETAMINOPHEN 325 MG TAB PO PRN (20:49)
[2020-01-04] MEDS: ATORVASTATIN 20 MG TAB PO SCH (20:50)
[2020-01-04 22:07] VITALS: BP 147/82
[2020-01-05 05:00] VITALS: BP 150/86
[2020-01-05] MEDS: SUCRALFATE 1 GM/10 ML ORAL SUSP PO SCH ×3 (05:50→17:44)
[2020-01-05] MEDS: CALCIUM CARB 500 MG CHEW TAB PO SCH ×4 (05:58→21:58)
[2020-01-05] MEDS: Nepro With Carbsteady ButterPecan 8oz Carton PO SCH ×2 (08:00→18:00)
[2020-01-05 08:12] LABS: BUN/Creatinine Ratio 10.4; Calcium 8.6 mg/dL (8.5-10.1); Potassium 3.9 mmol/L (3.5-5.1)
[2020-01-05] MEDS: OXYBUTYNIN CHL 5 MG TAB PO SCH (08:53)
[2020-01-05] MEDS: LINEZOLID 600MG TABLET PO SCH ×2 (08:53→21:58)
[2020-01-05] MEDS: SEVELAMER 800 MG TAB PO SCH ×3 (08:53→17:45)
[2020-01-05] MEDS: CLOPIDOGREL BISULFATE 75 MG TAB PO SCH (08:53)
[2020-01-05] MEDS: AMIODARONE HCL 200 MG TAB PO SCH ×2 (08:54→21:59)
[2020-01-05] MEDS: METOPROLOL SUCCINATE XL 50 MG TAB PO SCH (08:54)
[2020-01-05] MEDS: PANTOPRAZOLE 40 MG TAB PO SCH ×2 (08:54→21:58)
[2020-01-05] MEDS: dilTIAZem 120MG ER CAP PO SCH (08:55)
[2020-01-05] MEDS: DIGOXIN 0.125 MG TAB PO SCH (08:57)
[2020-01-05 09:00] VITALS: BP 154/85
[2020-01-05] MEDS: ACETAMINOPHEN 325 MG TAB PO PRN (12:20)
[2020-01-05 13:00] VITALS: BP 157/87
[2020-01-05 17:00] VITALS: BP 123/76
[2020-01-05] MEDS: TAMSULOSIN HYDROCHLORIDE 0.4 MG CAP PO SCH (17:45)
[2020-01-05] MEDS: ATORVASTATIN 20 MG TAB PO SCH (21:58)
[2020-01-05 22:00] VITALS: BP 140/80
[2020-01-06 05:49] VITALS: BP 148/89
[2020-01-06] MEDS: CALCIUM CARB 500 MG CHEW TAB PO SCH ×2 (06:50→12:00)
[2020-01-06] MEDS: SUCRALFATE 1 GM/10 ML ORAL SUSP PO SCH ×2 (06:50→11:30)
[2020-01-06 07:57] LABS: Calcium 8.8 mg/dL (8.5-10.1)
[2020-01-06] MEDS: SEVELAMER 800 MG TAB PO SCH ×2 (08:00→12:00)
[2020-01-06] MEDS: Nepro With Carbsteady ButterPecan 8oz Carton PO SCH (08:35)
[2020-01-06 09:00] VITALS: BP 139/85
[2020-01-06] MEDS: LINEZOLID 600MG TABLET PO SCH (09:46)
[2020-01-06] MEDS: OXYBUTYNIN CHL 5 MG TAB PO SCH (09:47)
[2020-01-06] MEDS: PANTOPRAZOLE 40 MG TAB PO SCH (09:47)
[2020-01-06] MEDS: CLOPIDOGREL BISULFATE 75 MG TAB PO SCH (09:47)
[2020-01-06] MEDS: ERGOCALCIFEROL 50,000 UNIT(1.25MG) CAP PO SCH (09:47)
[2020-01-06] MEDS: DIGOXIN 0.125 MG TAB PO SCH (09:48)
[2020-01-06] MEDS: dilTIAZem 120MG ER CAP PO SCH (09:48)
[2020-01-06] MEDS: METOPROLOL SUCCINATE XL 50 MG TAB PO SCH (09:49)
[2020-01-06] MEDS: AMIODARONE HCL 200 MG TAB PO SCH (09:49)
[2020-01-06 13:00] VITALS: BP 130/81
[2020-01-06] MEDS ORDERED: TAM04C PO (15:15)
[2020-01-06] MEDS ORDERED: DILT120C12 PO (15:15)
[2020-01-06 17:33] VITALS: BP 118/73
== END 2020-01-06 21:43 | DRG 377 ==
LOC: ER 17:22 → EEVIPCON 17:22 → OVERFLOW 17:23 → EAST 22:30 → TELE-E-ADS 22:30 → EAST 22:33 → TELE-E-ADS 12-14 21:20
PROVIDERS: ADMIT Internal Medicine; ATTEND Internal Medicine
DX: K27.4 Chronic or unspecified peptic ulcer, site unspecified, with hemorrhage (principal); N17.0 Acute kidney failure with tubular necrosis; I50.41 Acute combined systolic (congestive) and diastolic (congestive) heart failure; I13.0 Hypertensive heart and chronic kidney disease with heart failure and stage 1 through stage 4 chronic kidney disease, or unspecified chronic kidney disease; E87.1 Hypo-osmolality and hyponatremia; E87.2 Acidosis; E46 Unspecified protein-calorie malnutrition; J91.8 Pleural effusion in other conditions classified elsewhere; N12 Tubulo-interstitial nephritis, not specified as acute or chronic; I25.10 Atherosclerotic heart disease of native coronary artery without angina pectoris; B95.2 Enterococcus as the cause of diseases classified elsewhere; S30.1XXA Contusion of abdominal wall, initial encounter; N18.3 Chronic kidney disease, stage 3 (moderate); D64.9 Anemia, unspecified; N28.1 Cyst of kidney, acquired; B18.2 Chronic viral hepatitis C; X58.XXXA Exposure to other specified factors, initial encounter; E55.9 Vitamin D deficiency, unspecified; E78.5 Hyperlipidemia, unspecified; E87.5 Hyperkalemia; K21.9 Gastro-esophageal reflux disease without esophagitis; I48.91 Unspecified atrial fibrillation; N40.0 Benign prostatic hyperplasia without lower urinary tract symptoms; Z80.0 Family history of malignant neoplasm of digestive organs; Z82.49 Family history of ischemic heart disease and other diseases of the circulatory system; Z86.73 Personal history of transient ischemic attack (TIA), and cerebral infarction without residual deficits; Z95.5 Presence of coronary angioplasty implant and graft; Z79.899 Other long term (current) drug therapy; Y93.89 Activity, other specified; Y92.89 Other specified places as the place of occurrence of the external cause; Y99.8 Other external cause status
CPT/HCPCS: 36415; 70450; 71045; 74176; 74245; 76700; 76775; 76881; 78707; 80048; 80053; 80074; 80162; 81001; 82306; 82570; 82595; 82962; 83520; 83690; 83735; 83880; 83930; 83970; 84100; 84156; 84300; 84443; 84484; 85025; 85048; 85610; 85730; 86038; 86160; 86256; 87040; 87045; 87081; 87086; 87088; 87186; 87427; 93005; 93926; 97116; 97163; 97530; G0378; J0610; J1815; J2405; J2543; J3490

== ENCOUNTER 2020-04-06 16:12 | Inpatient (IN) | payer OTHER ==
[~2020-04-06] VITALS: Ht 172.7 cm; Wt 72.0 kg
[~2020-04-06 16:12] MED LIST changes: +DILT120C12 PO; -OXYB5TAB61 PO; +TAM04C PO
[2020-04-06] MEDS ORDERED: FUROSEMIDE 40 MG/4 ML VIAL IV ONE (16:15)
[2020-04-06 16:38] LABS: Basophils # (auto) 0 10 ^3/uL (0-0.2); Basophils % (auto) 0.7 % (0.0-2.0); Eosinophils # (auto) 0.1 10 ^3/uL (0-0.8); Eosinophils % (auto) 1.3 % (0.0-7.0); Hemoglobin 11.4 g/dL (13.5-17.5); Lymphocytes # (auto) 0.7 10 ^3/uL (0.4-5.4); Lymphocytes % (auto) 13.8 % (10.0-50.0); Mean Corpuscular Hemoglobin 30.8 pg (28.0-32.0); Mean Corpuscular Hgb Conc. 33.6 g/dL (32.0-36.0); Mean Corpuscular Volume 91.8 fL (80.0-100.0); Monocytes # (auto) 0.8 10 ^3/uL (0-1.3); Monocytes % (auto) 15.1 % (0.0-12.0); Neutrophils # (auto) 3.6 10 ^3/uL (1.6-8.6); Neutrophils % (auto) 69.1 % (37.0-80.0); Platelet Count (auto) 265 10^3/uL (140-450); Red Cell Distribution Width 17.8 % (11.8-14.3); White Blood Cell 5.2 10^3/uL (4.4-10.8)
[2020-04-06] MEDS ORDERED: IPRATROPIUM BROM 0.5 MG/2.5ML INH SOL NEB ONE (16:45)
[2020-04-06] MEDS ORDERED: ALBUTEROL SULF 2.5 MG/0.5ML(0.5%) NEB SOLN NEB ONE (16:45)
[2020-04-06 16:51] LABS: INR 1.09 (0.9-1.15); Partial Thromboplastin Time 30.4 sec (23.64-32.05)
[2020-04-06 16:54] LABS: Albumin 2.8 g/dL (3.4-5.0); BUN/Creatinine Ratio 10.4; Calcium 7.7 mg/dL (8.5-10.1); Magnesium 2.2 mg/dL (1.6-2.6); Potassium 4.6 mmol/L (3.5-5.1)
[2020-04-06 17:00] LABS: Bilirubin, Total 0.4 mg/dL (0.2-1.0)
[2020-04-06 17:47] LABS: Urine WBC None Seen /hpf (0 - 3)
[2020-04-06 17:59] LABS: Urine Bacteria NONE SEEN /hpf (None Seen); Urine Blood Negative /uL (Negative); Urine Specific Gravity 1.008 (1.001-1.035)
[2020-04-06] MEDS ORDERED: NITROGLYCERIN 0.4 MG SL TAB SL PRN (18:30)
[2020-04-06] MEDS ORDERED: MORPHINE SULF INJ 2 MG/ML SYRINGE 1ML IV PRN (18:30)
--- NOTE | 2020-04-06 20:20 | NUR ---
arrival note pt arrived to unit via wheel chair. pt transferred to hospital bed with minimal assist. respirations are even on 2Lnc. pt denies pain at this time. pt is an inmate, and has two [employer] guards at bedside.
--- NOTE | 2020-04-06 21:00 | NUR ---
MRSA swab sent
[2020-04-06] MEDS: FUROSEMIDE 20 MG/2 ML VIAL IV SCH (21:19)
[2020-04-06] MEDS: AMIODARONE HCL 200 MG TAB PO SCH (21:20)
[2020-04-06] MEDS: TAMSULOSIN HYDROCHLORIDE 0.4 MG CAP PO SCH (21:22)
[2020-04-06] MEDS: POTASSIUM CHL 10 Meq TABLET PO SCH (21:22)
[2020-04-06 22:00] VITALS: BP 141/75
[2020-04-07 05:00] VITALS: BP 126/75
[2020-04-07] MEDS: FUROSEMIDE 20 MG/2 ML VIAL IV SCH ×4 (05:49→21:26)
[2020-04-07 06:22] LABS: Calcium 7.8 mg/dL (8.5-10.1); Potassium 3.9 mmol/L (3.5-5.1)
--- NOTE | 2020-04-07 07:17 | NUR ---
closing note pt resting in semi fowlers with HOB at 30 degrees. respirations even and nonlabored on 2Lnc. two [employer] guards at bedside. bed in low locked position, call light within reach.
[2020-04-07 09:00] VITALS: BP 128/81
[2020-04-07] MEDS: dilTIAZem 120MG ER CAP PO SCH (09:45)
[2020-04-07] MEDS: AMIODARONE HCL 200 MG TAB PO SCH ×2 (09:45→21:25)
[2020-04-07] MEDS: METOPROLOL SUCCINATE XL 50 MG TAB PO SCH (09:46)
[2020-04-07] MEDS: ATORVASTATIN 20 MG TAB PO SCH (09:46)
[2020-04-07] MEDS: POTASSIUM CHL 10 Meq TABLET PO SCH ×4 (09:46→21:26)
[2020-04-07] MEDS: LISINOPRIL 5 MG TAB PO SCH (09:48)
[2020-04-07 12:44] VITALS: BP 126/89
--- NOTE | 2020-04-07 12:45 | NUR ---
Dr vela at bedside to discuss care.
[2020-04-07 17:15] VITALS: BP 151/75
[2020-04-07] MEDS: ALBUTEROL SULF 2.5 MG/0.5ML(0.5%) NEB SOLN NEB SCH (18:05)
[2020-04-07 19:40] VITALS: BP 151/75
[2020-04-07] MEDS: TAMSULOSIN HYDROCHLORIDE 0.4 MG CAP PO SCH (21:25)
[2020-04-07 22:35] VITALS: BP 137/86
--- NOTE | 2020-04-07 22:40 | NUR ---
DR Vida DE LA CRUZ IN TO SEE PATIENT. NOTED.
[2020-04-08 05:09] VITALS: BP 130/85
[2020-04-08] MEDS: FUROSEMIDE 20 MG/2 ML VIAL IV SCH ×3 (05:15→21:27)
[2020-04-08] MEDS: POTASSIUM CHL 10 Meq TABLET PO SCH ×3 (05:16→21:30)
[2020-04-08 06:20] LABS: BUN/Creatinine Ratio 10.7; Calcium 8.3 mg/dL (8.5-10.1); Potassium 4.2 mmol/L (3.5-5.1)
[2020-04-08] MEDS: ALBUTEROL SULF 2.5 MG/0.5ML(0.5%) NEB SOLN NEB SCH ×3 (06:47→18:39)
[2020-04-08 08:00] VITALS: BP 145/86
[2020-04-08 09:37] VITALS: BP 145/86
[2020-04-08] MEDS: ASPirin-EC 81 mg tab PO SCH (10:58)
[2020-04-08] MEDS: AMIODARONE HCL 200 MG TAB PO SCH ×2 (10:58→21:29)
[2020-04-08] MEDS: METOPROLOL SUCCINATE XL 50 MG TAB PO SCH (10:59)
[2020-04-08] MEDS: dilTIAZem 120MG ER CAP PO SCH (10:59)
[2020-04-08] MEDS: LISINOPRIL 5 MG TAB PO SCH (11:00)
[2020-04-08] MEDS: ATORVASTATIN 20 MG TAB PO SCH (11:00)
[2020-04-08] MEDS: ENOXAPARIN SOD 30 MG/0.3 ML SYRINGE SC SCH (11:05)
[2020-04-08] MEDS: CLOPIDOGREL BISULFATE 75 MG TAB PO SCH ×2 (11:06→15:18)
--- NOTE | 2020-04-08 12:00 | NUR ---
THORACENTESIS COMPLETED BY DR PEREZ IN ULTRASOUND. PT TOLERATED WELL. 2000 ML OF FLUID DRAINED AND SENT TO LAB. VSS 100/[id number]%.
[2020-04-08 14:44] LABS: BUN/Creatinine Ratio 10.9; Calcium 8.2 mg/dL (8.5-10.1); Potassium 4.3 mmol/L (3.5-5.1)
[2020-04-08] MEDS: HYDROcodone-ACET 10/325MG TAB PO PRN ×2 (15:34→21:28)
[2020-04-08 17:25] VITALS: BP 96/66
[2020-04-08 20:00] VITALS: BP 145/86
[2020-04-08] MEDS: TAMSULOSIN HYDROCHLORIDE 0.4 MG CAP PO SCH (21:28)
[2020-04-08 22:02] VITALS: BP 111/68
--- NOTE | 2020-04-09 02:49 | NUR ---
PT RESTING WELL;NO DISTRESS;WILL CONTINUE TO MONITOR.
[2020-04-09 04:40] VITALS: BP 117/72
[2020-04-09] MEDS: HYDROcodone-ACET 10/325MG TAB PO PRN ×2 (05:20→11:07)
[2020-04-09] MEDS: POTASSIUM CHL 10 Meq TABLET PO SCH ×2 (05:21→14:50)
[2020-04-09] MEDS: FUROSEMIDE 20 MG/2 ML VIAL IV SCH ×2 (05:21→14:51)
[2020-04-09] MEDS ORDERED: SODIUM CHLORIDE 0.9 % NEB SOLN 3ML NEB ONE (06:06)
--- NOTE | 2020-04-09 07:30 | NUR ---
OPENING NOTE RECEIVED REPORT FROM NOC RN. PATIENT SLEEPING AND RESTING IN BED WITHOUT S/S OF DISTRESS. WILL CONTINUE TO MONITOR.
[2020-04-09] MEDS: ALBUTEROL SULF 2.5 MG/0.5ML(0.5%) NEB SOLN NEB SCH ×2 (07:41→11:50)
[2020-04-09 08:00] VITALS: BP 103/64
[2020-04-09 09:00] VITALS: BP 103/64
[2020-04-09] MEDS: ENOXAPARIN SOD 30 MG/0.3 ML SYRINGE SC SCH (10:47)
[2020-04-09] MEDS: ASPirin-EC 81 mg tab PO SCH (10:47)
[2020-04-09] MEDS: dilTIAZem 120MG ER CAP PO SCH (10:48)
[2020-04-09] MEDS: LISINOPRIL 5 MG TAB PO SCH (10:50)
[2020-04-09] MEDS: ATORVASTATIN 20 MG TAB PO SCH (10:51)
[2020-04-09] MEDS: METOPROLOL SUCCINATE XL 50 MG TAB PO SCH (10:51)
[2020-04-09] MEDS: AMIODARONE HCL 200 MG TAB PO SCH (10:52)
[2020-04-09 13:00] VITALS: BP 114/73
[2020-04-09] MEDS ORDERED: FUR20T GT (13:25)
[2020-04-09 16:40] VITALS: BP 103/64
--- NOTE | 2020-04-09 19:50 | NUR ---
Opening Shift Note Assumed care of patient, awake and alert. No S/S of distress/SOB or pain. Patient reported discharge information given by nurse Moose. patient has no telebox or iv as they were discontinued by nurse MOOSE. Instructed on POC and to call for assist PRN, will continue to monitor for changes Q1hr and PRN.
--- NOTE | 2020-04-09 20:30 | NUR ---
patient transport here. patient reported pain to right hand 5/10 upon arrival of transport. patient is able to wiggle fingers, bilateral pulses assess and palpable, capillary refill <3sec. patient reported aching pain per patient started since yesterday. Heart rate 63, b/p 120/91, o2 saturation 97 via room air., rr 16.will notify .
--- NOTE | 2020-04-09 20:45 | NUR ---
MD English called. Notified MD of patient right arm hurting 5/10 aching pain that began since yesterday. Per MD patient is okay to discharge. order read back and verified by
--- NOTE | 2020-04-09 20:50 | NUR ---
Discharge Patient is being discharge and transferred back to [facility] with [facility]. Patient is to follow up with accepting doctor at the receiving facility. Patient was educated and informed again on discharge paper work. all forms signed and patient verbalized understanding. all belongings taken with patient.patient educated if health condition does not improve or worsen to contact primary care provider/doctor, or go immediately to the nearest emergency department for evaluation. patient verbalized understanding. telebox and iv removed by nurse MOOSE.
== END 2020-04-09 20:50 | DRG 291 ==
LOC: EDBD 16:12 → EEVIPCON 16:12 → ER 16:12 → TELE 16:13 → TELE-WESTW 20:29
PROVIDERS: ADMIT Internal Medicine; ATTEND Internal Medicine
PROC: 0W993ZZ Drainage of Right Pleural Cavity, Percutaneous Approach (ICD-10-PCS; principal; 2020-04-08)
DX: I13.0 Hypertensive heart and chronic kidney disease with heart failure and stage 1 through stage 4 chronic kidney disease, or unspecified chronic kidney disease (principal); I50.43 Acute on chronic combined systolic (congestive) and diastolic (congestive) heart failure; J90 Pleural effusion, not elsewhere classified; J98.11 Atelectasis; N18.4 Chronic kidney disease, stage 4 (severe); E78.5 Hyperlipidemia, unspecified; E78.00 Pure hypercholesterolemia, unspecified; I48.91 Unspecified atrial fibrillation; I25.10 Atherosclerotic heart disease of native coronary artery without angina pectoris; N40.0 Benign prostatic hyperplasia without lower urinary tract symptoms; Z80.0 Family history of malignant neoplasm of digestive organs; Z82.49 Family history of ischemic heart disease and other diseases of the circulatory system; Z95.5 Presence of coronary angioplasty implant and graft; Z91.040 Latex allergy status
CPT/HCPCS: 10022; 32555; 36415; 71045; 76604; 76942; 80048; 80053; 81001; 83735; 83880; 83986; 84443; 84484; 85025; 85610; 85730; 87081; 87205; 89051; 93005; 94640; 96374; 99291; G0378